=== PATIENT | female | born 1950 | race Caucasian/White ===

== ENCOUNTER 2017-11-13 19:16 | Emergency (ER) | payer MEDICARE, OTHER ==
[~2017-11-13] VITALS: Ht 152.4 cm; Wt 61.7 kg
[2017-11-13 19:37] VITALS: Ht 152.4 cm; Wt 61.7 kg
[2017-11-13 20:50] LABS: BASOPHIL % 0.5 % (0-2); PLATELET COUNT 230 x10^3mcL (130-400)
[2017-11-13 21:03] LABS: CALCIUM 8.8 mg/dL (8.5-10.1); CARBON DIOXIDE 28.1 mmol/L (21-32); POTASSIUM SERUM 4.2 mmol/L (3.5-5.1)
[2017-11-13 21:08] LABS: ALBUMIN 3.6 g/dL (3.4-5.0); BILIRUBIN TOTAL 0.6 mg/dL (0.20-1.00); TOTAL PROTEIN, SERUM 7.1 g/dL (6.4-8.2)
[2017-11-13 21:40] LABS: T4(THYROXINE) 6.3 ug/dL (4.7-13.3)
[2017-11-13 21:43] LABS: microscopic required? NO
[2017-11-13 21:55] VITALS: BP 130/70
[2017-11-13 22:00] LABS: urine erythrocyte NEGATIVE (NEGATIVE)
== END 2017-11-13 21:55 | disposition left against medical advice (07) ==
LOC: ED 19:16
PROVIDERS: Emergency Medicine
DX: R07.89 Other chest pain (principal); I10 Essential (primary) hypertension; E78.00 Pure hypercholesterolemia, unspecified
CPT/HCPCS: 36415; 83880; Q0092